=== PATIENT | female | born 1995 | race Caucasian/White ===

== ENCOUNTER 2016-12-11 18:08 | Emergency (ER) | payer MEDICAID ==
[2016-12-11 18:19] VITALS: TEMP 98.2
[2016-12-11 19:38] LABS: RBC URINE 5570 /hpf (0-3); URINE BACTERIA FEW (<OCC); URINE BILIRUBIN NEGATIVE (NEGATIVE); URINE BLOOD 3+ (NEGATIVE); URINE COLOR Red (YELLOW); URINE GLUCOSE (UA) NORMAL (Normal); URINE KETONE NEGATIVE (NEGATIVE); URINE LEUKOCYTE ESTERASE 1+ Leu/uL (Negative); URINE PROTEIN 2+ mg/dL (NEGATIVE); URINE UROBILINOGEN NORMAL mg/dL (0.2-1.0); WBC URINE 13 /hpf (0-5)
--- NOTE | 2016-12-11 19:39 | C.PDOC ---
History Of Present Illness 21-year-old female presents to the emergency department complaining of suprapubic abdominal/pelvic cramping pain for 4 days. Patient states pain is waxing and waning and has associated vaginal bleeding that is consistent with her menstrual cycle. She admits symptoms are due to her menses and has history of similar symptoms. She took ibuprofen without relief. Patient denies nausea, vomiting, diarrhea, fever, chills, chest pain, SOB, weakness. Time Seen by Provider: 12/11/16 19:03 Chief Complaint (Nursing): Back Pain History Per: Patient History/Exam Limitations: no limitations Onset/Duration Of Symptoms: Days (4 days ), Waxing/Waning (vaginal bleeding consistent with menstrual cycle ) Current Symptoms Are (Timing): Still Present Quality Of Discomfort: Cramping Associated Symptoms: denies: Fever, Chills, Nausea, Vomiting, Diarrhea, Urinary Symptoms Recent travel outside of the [place]: No Abnormal Vaginal Bleeding: No Past Medical History Reviewed: Historical Data, Nursing Documentation, Vital Signs Vital Signs: Last Vital Signs Temp 98.2 F 12/11/16 18:18 Pulse 71 12/11/16 20:29 Resp 18 12/11/16 20:29 BP 124/72 12/11/16 20:29 Pulse Ox 98 12/11/16 20:29 Family History: States: Unknown Family Hx - Social History Hx Tobacco Use: No Hx Alcohol Use: No Hx Substance Use: No - Immunization History Hx Tetanus Toxoid Vaccination: No Hx Influenza Vaccination: No Hx Pneumococcal Vaccination: No Review Of Systems Constitutional: Negative for: Fever, Chills, Weakness Cardiovascular: Negative for: Chest Pain, Palpitations Respiratory: Negative for: Cough, Shortness of Breath Gastrointestinal: Positive for: Abdominal Pain. Negative for: Nausea, Vomiting , Diarrhea Genitourinary: Positive for: Vaginal Bleeding (consistent with menstrual cycle ) . Negative for: Dysuria, Hematuria, Vaginal Discharge Physical Exam - Physical Exam Appears: Non-toxic, No Acute Distress Skin: Warm, Dry Head: Atraumatic, Normacephalic Eye(s): bilateral: Normal Inspection, EOMI Neck: Normal ROM, Supple Chest: Symmetrical, No Deformity Cardiovascular: No Murmur Respiratory: Normal Breath Sounds, No Rales, No Rhonchi, No Wheezing Gastrointestinal/Abdominal: Bowel Sounds, Soft, Tenderness (suprapubic tenderness ), No Distention, No Guarding, No Rebound Back: Normal Inspection, No CVA Tenderness Extremity: Normal ROM, No Tenderness, No Pedal Edema, No Deformity, No Swelling Neurological/Psych: Oriented x3, Normal Speech Gait: Steady ED Course And Treatment O2 Sat by Pulse Oximetry: 100 (room air ) Progress Note: UA was ordered and patient was given Tordaol. Medical Decision Making Medical Decision Making: Impression: cramping pain likely due to menses Plan: * POC * UA * Toradol Progress: UA shows blood. 2000On re-eval, patient resting comfortably in no distress. She reports pain has much improved. She has no fever, no significant abdominal tenderness. She feels comfortable going home and will be discharged Disposition Counseled Patient/Family Regarding: Diagnosis, Need For Followup, Rx Given - Disposition [facility]Outside[facility] Clinic,Med Surg [Primary Care Provider] - Disposition: HOME/ ROUTINE Disposition Time: 20:01 Condition: IMPROVED Additional Instructions: Vaya a hope mdico o la clnica en 2-5 maloney sin falta, para mas evaluacin. [place] los medicamentos mickie indicado. Volver a la vitaliy de emergencia en cualquier momento si los sntomas persisten o empeoran. Prescriptions: Ibuprofen [Motrin] 600 mg PO Q8 #30 tab Instructions: Dysmenorrhea (ED) Forms: [facility] (Luxembourgish) Print Language: KENYAN - POA Present On Arrival: None - Clinical Impression Clinical Impression: Dysmenorrhea - PA / TRAINING AND DEVELOPMENT COORDINATOR / Resident Statement MD/DO has reviewed & agrees with the documentation as recorded. - Scribe Statement The provider has reviewed the documentation as recorded by the Scribe Mabel Díaz All medical record entries made by the Scribe were at my direction and personally dictated by me. I have reviewed the chart and agree that the record accurately reflects my personal performance of the history, physical exam, medical decision making, and the department course for this patient. I have also personally directed, reviewed, and agree with the discharge instructions and disposition.
[2016-12-11 20:30] VITALS: BP 124/72; PULSE 71; RESP 18
[2016-12-11 21:22] VITALS: O2SAT 100
== END 2016-12-11 20:30 | disposition home or self-care (01) ==
LOC: SUPCPDRO 18:08 → C.ER 18:08
DX: N94.6 Dysmenorrhea, unspecified (principal)
CPT/HCPCS: 81001; 96372; 99285; J1885